=== PATIENT | male | born 1955 | race Caucasian/White ===

== ENCOUNTER 2018-05-28 17:11 | Day surgery (SDC) | payer BC ==
[~2018-05-28] VITALS: Ht 175.3 cm; Wt 82.4 kg
[~2018-05-28 17:11] MED LIST: CEFAZOLIN 1,000 MG ONE; PROPOFOL 10 MG/ML, 20ML ONE; ROCURONIUM 10MG/ML,5ML ONE; SUCCINYLCHOLINE 20 MG/ML, 10ML ONE
--- NOTE | 2018-05-28 17:55 | NUR ---
pt reports perirectal abscess, taking augmentin last 48 hours. spontaneous drainage 2d ago. fever 3 d ago, but none in last 48 hours. No obvious external hemorrhoid or abscess seen with exam. No drainage. Pt cont to reports discomfort.
[2018-05-28] MEDS ORDERED: MORPHINE SULFATE 4 MG/ML, 1ML IVPush PRN (18:30)
[2018-05-28] MEDS ORDERED: SODIUM CHLORIDE FLUSH 10ML SYR IVF ONE ×2 (18:30→20:00)
--- NOTE | 2018-05-28 18:38 | NUR ---
DECLINES MORPHINE AT THIS TIME. AWARE OF POC
[2018-05-28 18:48] LABS: BASOPHILS # (AUTO) 0.04 x10^3/uL (0-0.1); BASOPHILS % (AUTO) 0 % (0-1); EOSINOPHILS # (AUTO) 0.16 x10^3/uL (0-0.4); EOSINOPHILS % (AUTO) 2 % (1-7); LYMPHOCYTES # (AUTO) 1.32 x10^3/uL (1-3.4); LYMPHOCYTES % (AUTO) 12 % (22-44); MD NO; MEAN CORPUSCULAR HEMOGLOBIN 32.1 pg (27.5-34.5); MEAN CORPUSCULAR HGB CONC 33.7 g/dL (33.2-36.2); MEAN CORPUSCULAR VOLUME 95.3 fL (81-97); MEAN PLATELET VOLUME 8.8 fL (7.4-10.4); MONOCYTES # (AUTO) 0.69 x10^3/uL (0.2-0.8); MONOCYTES % (AUTO) 6 % (2-9); NEUTROPHILS # (AUTO) 9.05 x10^3/uL (1.8-6.8); NEUTROPHILS % (AUTO) 80 % (42-75); PLATELET COUNT 244 x10^3/uL (130-400); RED BLOOD COUNT 5.15 x10^6/uL (4.38-5.82); RED CELL DISTRIBUTION WIDTH 15.5 % (9.4-14.8)
[2018-05-28 18:59] LABS: ALBUMIN 3.9 g/dL (3.4-5.0); ANION GAP 6 mmol/L (5-15); CALCIUM 8.6 mg/dL (8.5-10.1); CHLORIDE 110 mmol/L (98-107); CREATININE 1.07 mg/dL (0.7-1.3)
--- NOTE | 2018-05-28 18:59 | NUR ---
BS report to Darling DAVIS
--- NOTE | 2018-05-28 19:00 | NUR ---
REPORT RECEIVED FROM JAGDEEP DAVIS.
--- NOTE | 2018-05-28 19:13 | NUR ---
PT IN CT NOW.
--- NOTE | 2018-05-28 19:24 | NUR ---
PT BACK TO ROOM FROM CT.
[2018-05-28] MEDS ORDERED: SODIUM CHLORIDE 0.9% 1,000 ML IV ONE (19:50)
[2018-05-28] MEDS ORDERED: PIPERACILLIN/TAZO/PMX 3.375GM 50 ML ONE (19:56)
[2018-05-28] MEDS ORDERED: PIPERACILLIN/TAZO/PMX 3.375GM 50 ML IV ONE (20:00)
--- NOTE | 2018-05-28 20:08 | NUR ---
Bedside SBAR report received from Darling DAVIS. Pt ambulated to bathroom. Pt placed on monitors. Darling DAVIS to start IV ABX upon arrival back to room.
--- NOTE | 2018-05-28 20:12 | NUR ---
PT MEDICATED PER EMAR. PT TOLERTAED WELL. PT'S AOX4. RESPS EVEN AND UNLABORED.
--- NOTE | 2018-05-28 20:16 | NUR ---
report given to sarina harris.
[2018-05-28 21:21] VITALS: BP 135/69
--- NOTE | 2018-05-28 21:24 | NUR ---
Telephone SBAR report given to RN, Jacqueline, OR. Pt to OR with [employer]. Pt's with pt.
[2018-05-28] MEDS ORDERED: FENTANYL PF 100 MCG/2ML ONE ×2 (21:43→23:03)
[2018-05-28] MEDS ORDERED: MIDAZOLAM 1 MG/ML, 2ML ONE (21:43)
[2018-05-28] MEDS ORDERED: BUPIVACAINE/PF-EPI 0.5% 1:200K ONE (21:44)
[2018-05-28] MEDS ORDERED: OXYcodone 5 MG/5 ML ORAL.SOL UDC PO PRN (22:30)
[2018-05-28] MEDS ORDERED: LABETALOL 5MG/ML, 20ML IV PRN (22:30)
[2018-05-28] MEDS ORDERED: KETOROLAC 30 MG/1 ML IV PRN (22:30)
[2018-05-28] MEDS ORDERED: ONDANSETRON 2MG/ML, 2ML IVPush PRN (22:30)
[2018-05-28] MEDS ORDERED: MEPERIDINE/PF 25MG/0.5ML IVPush PRN (22:30)
[2018-05-28] MEDS ORDERED: PROMETHAZINE 25 MG/ML, 1ML IV PRN (22:30)
[2018-05-28] MEDS ORDERED: ALBUTEROL SULFATE 2.5 MG/3 ML NPPB PRN (22:30)
[2018-05-28] MEDS ORDERED: METOCLOPRAMIDE 5 MG/ML, 2ML IV PRN (22:30)
[2018-05-28] MEDS ORDERED: hydrALAzine 20 MG/ML, 1ML IV PRN (22:30)
[2018-05-28] MEDS ORDERED: OMNIPAQUE 350 MG/ML, 100ML BOTTLE ONE (22:32)
[2018-05-28] MEDS: FENTANYL PF 100 MCG/2ML IV PRN ×2 (22:42→23:04)
[2018-05-28] MEDS ORDERED: OXYcodone 5 MG/5 ML ORAL.SOL UDC ONE (22:45)
[2018-05-28] MEDS ORDERED: HYDROmorphone 1 MG/ML, 1ML AMP ONE (22:45)
[2018-05-28] MEDS: HYDROmorphone 1 MG/ML, 1ML AMP IV PRN ×2 (22:49→22:57)
[2018-05-29] MEDS ORDERED: IBUP-1223 PO (00:10)
[2018-05-29] MEDS ORDERED: ACET-76 PO (00:11)
[2018-05-29] MEDS ORDERED: [UNRECOGNIZED DRUG - CODE] EXT (00:15)
== END 2018-05-29 01:20 | disposition home or self-care (01) ==
LOC: OR 18:04 → ED 18:04 → OR 05-29 01:20
PROVIDERS: ATTEND Emergency Medicine
DX: K61.1 Rectal abscess (principal); F17.200 Nicotine dependence, unspecified, uncomplicated
CPT/HCPCS: 36415; 46020; 72193; 80048; 82040; 85025; J0330; J0690; J1170; J2250; J2543; J2704; J3010; Q9967